=== PATIENT | female | born 1995 | race Caucasian/White ===

== ENCOUNTER 2021-03-03 11:23 | Emergency (ER) | payer BC ==
[2021-03-03 12:47] LABS: Absolute Lymphocytes (CBC) 0.7 K/uL (0.7-4.9); Basophils % 0.2 % (0-1.3); Hematocrit 30.1 % (36.0-45.0); Lymphocytes % 11.9 % (15.3-44.8); MPV 10.3 fL (7.6-11.3); RBC Red Blood Cell Count 3.46 M/uL (3.86-4.86)
[2021-03-03 13:02] LABS: Urine Blood 2+ (Negative); Urine Glucose Negative (Negative); Urine Protein Negative (Negative); Urine Specific Gravity 1.015 (1.005-1.030)
[2021-03-03 13:15] LABS: Urine Specific Gravity/Preg 1.015 (1.005-1.030)
--- NOTE | 2021-03-03 13:17 | RAD REPORT ---
EXAM DESCRIPTION: US - Matter Lyndon Tm 1 - 03/03/2021 1:04 pm CLINICAL HISTORY: with abdominal pain COMPARISON: None FINDINGS: The uterus measures 10 x 7 x 10 centimeters. pole is present within the endometrium with a crown-rump length 4.4 centimeters. Cardiac activity 166 beats per minute. 1.9 centimeters subc horionic bleed The right and left ovaries are normal in size and echotexture. The right and left at adnexa unremarka ble No significant free fluid IMPRESSION: Single live intrauterine with an gestational age 11 weeks 0 days LEANNE 1 1.9 centimeter subchorionic bleed
[2021-03-03 13:18] LABS: BUN Blood Urea Nitrogen 7 mg/dL (7-18); Bicarbonate 23 mmol/L (21-32); Glucose Level 81 mg/dL (74-106); HCG, Quantitative 90631 mIU/mL (1-3); Potassium 3.6 mmol/L (3.5-5.1); Sodium Level 138 mmol/L (136-145)
--- NOTE | 2021-03-03 13:25 | ER ---
Nurse's Notes [facility] Name: Gale Estevez Age: 25 yrs Sex: Female : 1995 Arrival Date: 03/03/2021 Time: 11:29 Bed 20 Private MD: Diagnosis: 11 weeks gestation of ;Threatened Presentation: 03/03 12:00 Chief complaint: Spotty vaginal bleeding since this morning. Denies pain. LMP 12/18, LEANNE hb 09/24. Coronavirus screen: At this time, the client does not indicate any symptoms associated with coronavirus-19. Ebola Screen: No symptoms or risks identified at this time. Initial Sepsis Screen: Does the patient meet any 2 criteria? No. Patient's initial sepsis screen is negative. Does the patient have a suspected source of infection? No. Patient's initial sepsis screen is negative. Risk Assessment: Do you want to hurt yourself or someone else? Patient reports no desire to harm self or others. Onset of symptoms was March 03, 2021. 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 - Social history:: Smoking status: Patient denies any tobacco usage or history of. Screenin:37 Abuse screen: Denies threats or abuse. Nutritional screening: No deficits noted. vg1 Tuberculosis screening: No symptoms or risk factors identified. Fall Risk No fall in past 12 months (0 pts). No secondary diagnosis (0 pts). IV access (20 points). Ambulatory Aid- None/Bed Rest/Nurse Assist (0 pts). Gait- Normal/Bed Rest/Wheelchair (0 pts) Mental Status- Oriented to own ability (0 pts). Total Booker Fall Scale indicates No Risk (0-24 pts). Assessment: 12:36 General: Appears in no apparent distress. comfortable, Behavior is calm, cooperative. vg1 Pain: Denies pain. Neuro: Level of Consciousness is awake, alert, obeys commands, Oriented to person, place, time, situation. Cardiovascular: Patient's skin is warm and dry. Respiratory: Airway is patent Respiratory effort is even, unlabored. GI: No signs and/or symptoms were reported involving the gastrointestinal system. : : Urine is tera in color. EENT: No signs and/or symptoms were reported regarding the EENT system. Derm: Skin is intact, is healthy with good turgor. Musculoskeletal: Circulation, motion, and sensation intact. 13:31 Reassessment: Patient appears in no apparent distress at this time. No changes from vg1 previously documented assessment. Patient and/or family updated on plan of care and expected duration. Pain level reassessed. Patient is alert, oriented x 3, equal unlabored respirations, skin warm/dry/pink. Vital Signs: 12:00 BP 118 / 72; Pulse 84; Resp 16; Temp 97.7; Pulse Ox 100% on R/A; Weight 61.23 kg; hb Height 5 ft. 5 in. (165.10 cm); Pain 0/10; 12:40 BP 104 / 63; Pulse 69; Resp 16; Pulse Ox 100% on R/A; vg1 13:32 BP 103 / 61; Pulse 70; Resp 14; Pulse Ox 100% ; vg1 12:00 Body Mass Index 22.46 (61.23 kg, 165.10 cm) hb ED Course: 11:29 Patient arrived in ED. mr 11:31 Sara Schneider, [facility]. kb 11:31 Susanna Basurto MD is Attending Physician. kb 12:01 Triage completed. hb 12:02 Arm band placed on. hb 12:35 Margie Deng, RN is Primary Nurse. vg1 12:36 Initial lab(s) drawn, by ar, sent to lab. Inserted saline lock: 20 gauge in right vg1 antecubital area, using aseptic technique. Blood collected. 12:37 Patient has correct armband on for positive identification. Bed in low position. Call vg1 light in reach. Side rails up X 1. 13:04 Matter Eval Tm 1 In Process Unspecified. EDMS 13:32 No provider procedures requiring assistance completed. IV discontinued, intact, vg1 bleeding controlled, No redness/swelling at site. Pressure dressing applied. Administered Medications: No medications were administered Outcome: 13:25 Discharge ordered by MD. lovelace 13:32 Discharged to home ambulatory, with family. vg1 13:32 Condition: stable 13:32 Discharge instructions given to patient, Instructed on discharge instructions, follow up and referral plans. Demonstrated understanding of instructions, follow-up care. 13:33 Patient left the ED. vg1 Signatures: Dispatcher [employer] [facility] Sara Schneider, CARLOZ HORTON-Ana María Eagle Heather, RN RN hb Garcia, Victoria, RN RN vg1 Corrections: (The following items were deleted from the chart) 12:39 12:36 : vg1 vg1
--- NOTE | 2021-03-03 13:25 | EDPHYS ---
Physician Documentation [facility] Name: Gale Estevez Age: 25 yrs Sex: Female : 1995 Arrival Date: 03/03/2021 Time: 11:29 Bed 20 Private MD: ED Physician Susanna Basurto HPI: 03/03 13:32 This 25 yrs old Female presents to ER via Ambulatory with complaints of kb Vaginal Bleeding, + Preg <12wks. 13:32 The patient presents to the emergency department with vaginal bleeding, described as kb spotting. The estimated gestational age is 11 weeks. course: care: private OB physician. Previous pregnancies: the patient has never been . Associated signs and symptoms: Pertinent positives: vaginal bleeding, Pertinent negatives: abdominal pain. The patient has not experienced similar symptoms in the past. The patient has not recently seen a physician. Pt reports slight amount of blood on toilet paper when wiping after urination twice this morning.. 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 - Social history:: Smoking status: Patient denies any tobacco usage or history of. ROS: 13:31 Constitutional: Negative for fever, chills, and weight loss. kb 13:31 : Positive for vaginal bleeding. 13:31 All other systems are negative. Exam: 13:29 Constitutional: This is a well developed, well nourished patient who is awake, alert, kb and in no acute distress. ENT: Moist Mucous membranes Respiratory: Respirations even and unlabored. No increased work of breathing, no retractions or nasal flaring. Abdomen/GI: Soft, non-tender. No distention Skin: Warm, dry with normal turgor. Normal color. MS/ Extremity: Pulses equal, no cyanosis. Neurovascular intact. Full, normal range of motion. Neuro: Awake and alert, GCS 15, oriented to person, place, time, and situation. Moves all extremities. Normal gait. Psych: Awake, alert, with orientation to person, place and time. Behavior, mood, and affect are within normal limits. 13:29 Eyes: Periorbital structures: appear normal. Vital Signs: 12:00 BP 118 / 72; Pulse 84; Resp 16; Temp 97.7; Pulse Ox 100% on R/A; Weight 61.23 kg; hb Height 5 ft. 5 in. (165.10 cm); Pain 0/10; 12:40 BP 104 / 63; Pulse 69; Resp 16; Pulse Ox 100% on R/A; vg1 13:32 BP 103 / 61; Pulse 70; Resp 14; Pulse Ox 100% ; vg1 12:00 Body Mass Index 22.46 (61.23 kg, 165.10 cm) hb MDM: 12:04 Patient medically screened. kb 13:23 Data reviewed: vital signs, nurses notes. Data interpreted: Pulse oximetry: on room air kb is 100 %. Interpretation: normal. Counseling: I had a detailed discussion with the patient and/or guardian regarding: the historical points, exam findings, and any diagnostic results supporting the discharge/admit diagnosis, lab results, radiology results, the need for outpatient follow up, an OB/Gyne specialist, to return to the emergency department if symptoms worsen or persist or if there are any questions or concerns that arise at home. 03/03 12:02 Order name: Quantitative Hcg; Complete Time: 13:20 kb 03/03 12:02 Order name: Abo/rh Typing; Complete Time: 13:13 kb 03/03 12:02 Order name: Basic Metabolic Panel; Complete Time: 13:20 kb 03/03 12:02 Order name: CBC with Diff; Complete Time: 12:50 kb 03/03 13:01 Order name: Urine Dipstick-Ancillary; Complete Time: 13:10 EDMS 03/03 13:14 Order name: Urine --Ancillary (enter results); Complete Time: 13:20 em1 03/03 12:02 Order name: Urine Test (obtain specimen); Complete Time: 12:57 kb 03/03 12:02 Order name: IV Saline Lock; Complete Time: 12:35 kb 03/03 12:02 Order name: Labs collected and sent; Complete Time: 12:35 kb 03/03 12:02 Order name: NPO; Complete Time: 12:35 kb 03/03 12:02 Order name: Urine Dipstick-Ancillary (obtain specimen); Complete Time: 12:57 kb 03/03 13:04 Order name: Matter Eval Tm 1; Complete Time: 13:20 EDMS Administered Medications: No medications were administered Disposition: 03/03/21 13:25 Discharged to Home. Impression: 11 weeks gestation of , Threatened . - Condition is Stable. - Discharge Instructions: Vaginal Bleeding During , First Trimester, First Trimester of , [id number], Subchorionic Hematoma. - Medication Reconciliation Form, Thank You Letter, Antibiotic Education, Prescription Opioid Use form. - Follow up: Emergency Department; When: As needed; Reason: Worsening of condition. Follow up: Private Physician; When: 2 - 3 days; Reason: Recheck today's complaints, Continuance of care, Re-evaluation by your physician. Addendum: 03/07/2021 06:56 Co-signature as Attending Physician, Susanna Basurto MD. m a2 Signatures: Dispatcher [employer] [facility] Sara Schneider, [employer] BR[employer] OPERATOR-Dyana Alvares, RN RN Susanna Basurto MD MD ma2 Margei Deng, RN RN vg1 Corrections: (The following items were deleted from the chart) 03/03 13:04 12:02 Transvaginal Ob+US.RAD.BRZ ordered. [facility] 13:33 13:25 03/03/2021 13:25 Discharged to Home. Impression: 11 weeks gestation of ; vg1 Threatened . Condition is Stable. Forms are Medication Reconciliation Form, Thank You Letter, Antibiotic Education, Prescription Opioid Use. Follow up: Emergency Department; When: As needed; Reason: Worsening of condition. Follow up: Private Physician; When: 2 - 3 days; Reason: Recheck today's complaints, Continuance of care, Re-evaluation by your physician. kb
[2021-03-03 13:56] VITALS: TEMP 97.7; O2SAT 100
[2021-03-03 14:10] VITALS: BP 103/61
== END 2021-03-03 13:33 | disposition home or self-care (01) ==
LOC: ER 11:23
DX: O20.0 Threatened abortion (principal); Z3A.11 11 weeks gestation of pregnancy
CPT/HCPCS: 36415; 76801; 80048; 81003; 81025; 84702; 85025; 86900; 86901; 99283